=== PATIENT | female | born 1985 | race Caucasian/White ===

== ENCOUNTER 2018-03-23 08:00 | Inpatient (IN) ==
[2018-03-23] MEDS ORDERED: miSOPROStol 25 MCG TABLET PO PRN (08:18)
[2018-03-23] MEDS ORDERED: Metoclopramide 10 MG/2 ML VIAL IVP PRN (08:18)
[2018-03-23] MEDS ORDERED: Naloxone 0.4 MG/ML INJ IVP PRN (08:18)
[2018-03-23] MEDS ORDERED: *HR* Nalbuphine 10 MG/ML AMPUL IVP PRN (08:18)
[2018-03-23] MEDS ORDERED: Ondansetron 4 MG/2 ML VIAL IVP PRN (08:18)
[2018-03-23] MEDS ORDERED: Famotidine 20 MG/2 ML VIAL IVP PRN (08:18)
[2018-03-23] MEDS ORDERED: Oxytocin 20 units/ LR 1000 mL 20 UNIT/1,000 ML BAG IVC SCH (08:30)
[2018-03-23] MEDS ORDERED: Ringers Solution, Lactated 1,000 ML IVC SCH (08:30)
--- NOTE | 2018-03-23 08:58 | OB/GYN History & Physical ---
Date of Encounter: 03/23/18 Time of Encounter: 08:52 Assessment and Plan (1) 39 weeks gestation of Current visit: Yes Status: Acute Planned induction of labor with PO cytotec. EFM placed. FHTs category 1 and reactive. Explained to patient she needs to stay on the monitor, but does not have to stay in bed. Questions answered for patient and spouse. (2) Abnormal AFP screen Current visit: Yes Status: Acute Abnormal screen showing 1:34 Down's syndrome. Normal MFM consult. She has been followed with weekly NSTs here and growth scans (with MFM) History of Present Illness Chief complaint: Patient presents for induction of labor at term with abnormal AFP HPI: Ms. Judd is a 32 year old female G2 P 0-0-1-0 at 39 4/7 weeks presents to labor and delivery for induction of labor due to term with abnormal AFP. She had an MFM appointment and everything was found to be normal. She transferred care at 24 weeks. 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 She denies any contractions, vaginal bleeding, or leaking fluid. She reports good movement. Past Med Surg Social Fam HX - Past Medical History Source: patient Medical history: no medical history - Social History Smoking Status: Never smoker Obstetrical History - Pregnancies : 2 Ab's: 1 Medications and Allergies Docusate [Colace] 100 mg PO DAILY 03/23/18 [History] Omeprazole [PriLOSEC] 20 mg PO BIDAC 03/23/18 [History] Pnv Cmb#21/Iron/Folic Acid [ Complete Caplet] 1 each PO DAILY 03/23/18 [ History] 3 Allergy/AdvReac Type Severity Reaction Status Date / Time No Known Allergies Allergy Verified 03/23/18 08:29 Review of System OB All systems PM: reviewed and no additional remarkable complaints except as stated - Constitutional Constitutional ROS IM: as per HPI, no fever(s), no headache(s) - Gastrointestinal Gastrointestinal: no nausea, no vomiting - Menstruation Menstruation: amenorrhea Exam - Constitutional Constitutional: well developed, well nourished, no acute distress - HEENT HEENT: EOMI - Neck Neck exam: full ROM - Lungs Respiratory exam: CTAB - Cardiovascular Cardiovascular exam: RRR - Abdomen Abdomen: Present: bowel sounds normal, gravid, non tender - Extremities Extremities exam: pedal edema - Cervix Dilation: 1 (on exam 03/20/18 in the office) Effacement: 80 Station: -3 Results All other labs normal. - VTE Reasons for not Prescribing Prophylaxis: Treatment not Indicated - Low risk for VTE
[2018-03-23] MEDS ORDERED: Ringers Solution, Lactated 1,000 ML ONE (09:03)
[2018-03-23 09:08] LABS: Basophils % 0.4 %; Eosinophils # 0.1 K/mcL (0.0-0.6); Eosinophils % 0.8 %; Hematocrit 34.9 % (35.3-44.9); Hemoglobin 11.9 g/dL (11.5-15.4); Immature Granulocytes % 1.6 % (0-4); Lymphocytes # 1.9 K/mcL (0.6-4.6); Mean Corpuscular HGB Conc 34.1 g/dL (31.6-35.5); Mean Corpuscular Hemoglobin 29.7 pg (28.0-33.3); Mean Platelet Volume 10.3 fL (9.4-12.4); Monocytes # 0.6 K/mcL (0.0-1.3); Monocytes % 5.5 %; Neutrophils # 7.7 K/mcL (1.6-8.9); Platelet Count 241 K/mcL (140-400); Red Blood Count 4.01 M/mcL (3.82-4.97); Red Cell Distribution Width 14.1 % (11.5-14.5); Segmented Neutrophils % 73.7 %
[2018-03-23] MEDS ORDERED: Penicillin G Potassium 5,000,000 UNIT in 0.9 % Sodium Chloride Mini Bag 100 ML IVPB ONE (09:11)
[2018-03-23] MEDS ORDERED: EPHEDrine 50 MG/ML VIAL IVP PRN (09:19)
--- NOTE | 2018-03-23 09:22 | Anesthesia Evaluation PreOp ---
Date of Encounter: 03/23/18 Time of Encounter: 09:15 - Past History Planned Operation: vaginal del, induction Cardiac History: Denies any Significant Hx Pulmonary History: Denies Any Significant HX CASUAL SHOE INSPECTOR History: Denies Any Significant HX Other Medical History: Denies Any Significant HX Anesthesia History: No Prior Anesthetic Complications, Past Anesthesia (PONV for 30min to 1 hr.) Alcohol Use: none Drug use: none Medications and Allergies Docusate [Colace] 100 mg PO DAILY 03/23/18 [History] Omeprazole [PriLOSEC] 20 mg PO BIDAC 03/23/18 [History] Pnv Cmb#21/Iron/Folic Acid [ Complete Caplet] 1 each PO DAILY 03/23/18 [ History] 3 Allergy/AdvReac Type Severity Reaction Status Date / Time No Known Allergies Allergy Verified 03/23/18 08:29 Anesthesia Results - Labs 03/23/18 09:00 Anesthesia Exam - HEENT Pupil (Motor): Pupils equal Mallampati: II Teeth: Normal (por dentition) Oral Opening: Greater than 3 - CASUAL SHOE INSPECTOR LOC: Oriented CASUAL SHOE INSPECTOR Motor: Normal RUE, Normal LUE, Normal RLE, Normal LLE, Normal Face CASUAL SHOE INSPECTOR Sensory: Normal: RUE, LUE, RLE, LLE, Face - Cardiac Rhythm: Regular Murmur: None - Pulmonary Breath Sounds: bilateral Clear Respiratory Effort: Symmetrical Anesthesia Assess/Plan ASA Score: 2 Modified Raven Scale for Level of Consciousness: Cooperative, oriented, and tranquil Anesthetic Plan: General, Regional Monitoring Plan: Standard Monitors Recovery Plan: PACU
[2018-03-23] MEDS ORDERED: Epidural Premix (fent/bupiv) 110 ML EP SCH (09:30)
[2018-03-23 09:33] LABS: Amphetamine Screen,Urine Negative ng/mL (Cutoff=1000); Barbiturate Screen,Urine Negative ng/mL (Cutoff=200); Benzodiazepines Screen,Urine Negative ng/mL (Cutoff=200); Cannabinoid Screen,Urine Negative ng/mL (Cutoff = 50); Cocaine Screen,Urine Negative ng/mL (Cutoff= 300); Opiate Screen,Urine Negative ng/mL (Cutoff=300); Phencyclidine Screen,Urine Negative ng/mL (Cutoff=25)
--- NOTE | 2018-03-23 10:05 | OB Labor Progress Note ---
Date of Encounter: 03/23/18 Time of Encounter: 10:01 Labor Progress Note - Subjective Subjective: Patient resting in bed. Discussed POC with patient and figueroa induction. Patient denies any questions or concerns. - Cervix Cervix: 1.5/80/-2 - Heart Tones Heart Tones: 135 bpm moderate variability +15x15 accels no decels noted. Cat. 1 tracing - [place]: irregular - Interventions Interventions: SVE, Figueroa catheter placed without difficulty. Patient tolerated well. 30cc sterile water placed in figueroa balloon. - Plan Plan: Continue labor management Dr. Garcia updated on patient's status
[2018-03-23] MEDS ORDERED: Lidocaine -MPF 2% 5 ML VIAL ONE (11:58)
[2018-03-23] MEDS: Penicillin G Potassium 2,500,000 UNIT in 0.9 % Sodium Chloride 100 ML IVPB SCH ×2 (13:52→18:02)
--- NOTE | 2018-03-23 14:33 | OB Labor Progress Note ---
Date of Encounter: 03/23/18 Time of Encounter: 14:30 Labor Progress Note - Subjective Subjective: Patient doing well. Patient reports pain is tolerable at this time. - Cervix Cervix: 3.5/90/-2 - Heart Tones Heart Tones: 135 bpm moderate variability +15x15 accels no decels noted. Cat. 1 tracing - [place]: 2-3 min apart - Interventions Interventions: SVE, discussed POC with patient. Patient denies any questions or concerns. - Plan Plan: Continue labor management Dr. Garcia updated on patient's status
--- NOTE | 2018-03-23 18:53 | Anesthesia Procedures ---
Date of Encounter: 03/23/18 Time of Encounter: 18:31 Procedures: Anesthesia - Epidural/Spinal Patient ID/Chart reviewed: Yes Patient examined: Yes OB Eval: Gestational age: term OB Eval: : 1 OB Eval: Contractions: Non-stressed pattern Consent Obtained: Yes Supplemental Oxygen: None/Room Air Site Prep: Aseptic Technique, Sterile prep and drape, 0.5% Chlorhexidine/Alcohol Patient position: upright Local Anesthetic: Lidocaine 1% Amount of Local Anesthetic used: 2 Touhy Needle Gauge: 18 Touhy Needle Depth (cm): 6 Catheter Depth at Skin (cm): 11 Test Dose (1.5% Lido + Epi): Volume given (mls): 3 Test Dose Result: Negative Loading Dose: Other: 10ml from solution Loading Dose Administered: Thru Touhy Needle Infusion Med: 0.125% Bupivacaine w/ 2 mcg/ml Fentanyl Infusion Rate (mls/hr): [address]: Tegaderm, Tape Interspace Used: L4-L5 Loss of Resistance (WENDY): Yes (saline) Blood: No CSF: No Paresthesia: No Procedure: vss though out procedure, FHR stable per rn's
--- NOTE | 2018-03-23 20:14 | OB Labor Progress Note ---
Date of Encounter: 03/23/18 Time of Encounter: 19:45 Labor Progress Note - Subjective Subjective: Patient comfortable after her epidural. She denies any complaints at this time. - Cervix Cervix: 4/80/-3 cephalic - Heart Tones Heart Tones: category 1, basline 130 - [place]: q 2 minutes, pitocin at 6 mUnits/min - Interventions Interventions: AROM, large amount of clear fluid, IUPC placed without difficulty - Plan Plan: Continue pitocin induction with anticipation of a vaginal delivery
[2018-03-24] MEDS ORDERED: *HR* Ropivacaine/PF 0.2% 20 ML VIAL ONE (08:56)
[2018-03-24] MEDS ORDERED: *HR* FentaNYL (PF) 100 MCG/2 ML VIAL ONE (08:56)
--- NOTE | 2018-03-24 09:03 | Anesthesia Progress Note ---
Date of Encounter: 03/24/18 Time of Encounter: 09:02 Anesthesia Note - Note Note: 03/24/18 09:02 re bolus for break through pain, fentanyl 100 mcg, ropivicaine 0.2% 5 cc
[2018-03-24] MEDS: Penicillin G Potassium 2,500,000 UNIT in 0.9 % Sodium Chloride 100 ML IVPB SCH (11:06)
--- NOTE | 2018-03-24 20:29 | OB/GYN Procedure Note ---
Delivery - Delivery Date: 03/24/18 Provider: Johnny Ledesma Delivery induction: misoprostol Delivery monitor: internal FHT, internal uterine Anesthesia: epidural Quantitated Blood Loss: 300 - (s) Infant A Delivery Date: 03/24/18 Delivery Time: 19:48 Presentation: vertex Position: JERICA Route of delivery: vacuum extraction Viability: Viable Pounds: 7 Ounces: 6 at 1 minute: 8 at 5 mins: 9 Specimens collected: cord blood Placenta: spontaneous Cord: 3 umbilical vessels, nuchal reduced - Repair Episiotomy: none Laceration Description: Perineal - 2nd Degree, Vaginal (rt labial) - Complications Delivery complications: none - Disposition Mom disposition: stable in LDR disposition: stable in LDR - Comments Comments: Pt reached complete dilatation and +3 station and was absolutely exhausted asking for options to expedite delivery. We discussed possible vacuum with associated risks and benefits and vs continued expectant mgmt. Pt gave verbal consent to vacuum.Vacuum was applied at + 3 station and infant was delivered in 2 pulls with good maternal effort. total vacuum time was 40 sec. and vacuum pressure was 550 mmhg and was reduced b/w contractions. was delivered without dystocia. We had spontaneous delivery of normal placenta with 3 VC. There was right vaginal laceration and 2nd degree laceration repaired under epidural with 3-0 vicryl.
[2018-03-24] MEDS ORDERED: Measles/Mumps/Rubella Vacc 0.5 ML VIAL SQ PRN (20:51)
[2018-03-24] MEDS ORDERED: Rho Immune Globulin 1,500 UNIT SYRINGE IM PRN (20:51)
[2018-03-24] MEDS: Acetaminophen 325 MG TABLET PO PRN (21:07)
[2018-03-24] MEDS ORDERED: Ondansetron 4 MG/2 ML VIAL IVP ONE (23:53)
[2018-03-25] MEDS: Ibuprofen 600 MG TABLET PO PRN ×4 (00:02→21:53)
[2018-03-25] MEDS ORDERED: Benzocaine/Menthol 56 GM AEROSOL SPRAY TP PRN (00:52)
[2018-03-25 06:44] LABS: Basophils % 0.2 %; Eosinophils # 0.1 K/mcL (0.0-0.6); Eosinophils % 0.4 %; Hematocrit 26.5 % (35.3-44.9); Hemoglobin 9.3 g/dL (11.5-15.4); Immature Granulocytes % 1.3 % (0-4); Lymphocytes # 1.7 K/mcL (0.6-4.6); Mean Corpuscular HGB Conc 35.1 g/dL (31.6-35.5); Mean Corpuscular Hemoglobin 30.4 pg (28.0-33.3); Mean Corpuscular Volume 86.6 fL (83.0-100.0); Mean Platelet Volume 10.1 fL (9.4-12.4); Monocytes # 1.1 K/mcL (0.0-1.3); Monocytes % 5.5 %; Neutrophils # 16.1 K/mcL (1.6-8.9); Platelet Count 173 K/mcL (140-400); Red Blood Count 3.06 M/mcL (3.82-4.97); Red Cell Distribution Width 14.2 % (11.5-14.5); Segmented Neutrophils % 83.6 %
[2018-03-25] MEDS: Prenatal Vit/FA 1 EACH TABLET PO SCH (08:09)
--- NOTE | 2018-03-25 11:51 | OB/GYN Progress Note ---
Date of Encounter: 03/25/18 Time of Encounter: 11:48 - Assessment and Plan (1) 39 weeks gestation of Current Visit: Yes Status: Resolved (2) Abnormal AFP screen Current Visit: Yes Status: Resolved Abnormal screen showing 1:34 Down's syndrome. (3) Vaginal delivery Current Visit: Yes Status: Acute Patient is progressing well from a PP standpoint. Reassurance provided regarding the diarrhea which is likely due to the cytotec from yesterday. She is cleaned up and feeling better. She would like to stay until tomorrow to receive more help with and care (4) Breast feeding status of mother Current Visit: Yes Status: Acute Mom is attempting to latch, but baby is too sleepy. She is pumping and baby is getting expressed breast milk. She will continue to work with support. Subjective - Subjective Principal diagnosis: s/p vaginal delivery Patient reports: appetite normal, voiding normally, pain well controlled, ambulating normally, other (diarrhea this morning that was a large amount and unable to control), no nauseated [place]: doing well Objective - Latest Vital Signs Latest vital signs: Vital Signs Temp Pulse Resp BP Pulse Ox 03/25/18 07:30 98.0 F 83 16 98/65 03/25/18 00:45 98.1 F 93 16 103/72 98 03/24/18 23:45 16 03/24/18 22:45 98.2 F 96 16 106/67 99 Intake and Output 03/24/18 03/25/18 03/25/18 23:59 07:59 15:59 Intake Total 300 / 300 3 / 3 Output Total 1600 / 1600 Balance -1300 / -1300 3 / 3 Intake: Oral 300 / 300 3 / 3 Output: Urine 1600 / 1600 Other: # Breastfeedings 15 Weight 90 kg - Exam Lungs: bilateral: normal Chest: Normal S1, Normal S2 Extremities: Present: normal Abdomen: Present: normal appearance, soft Uterus: Present: normal, firm Uterus Position: At Umbilicus - Labs Labs: Laboratory Results - last 24 hr 03/25/18 06:24 WBC 19.3 H D RBC 3.06 L Hgb 9.3 L D Hct 26.5 L MCV 86.6 MCH 30.4 MCHC 35.1 RDW 14.2 Plt Count 173 MPV 10.1 Immature Gran % 1.3 Seg Neutrophils % 83.6 Lymphocytes % 9.0 Monocytes % 5.5 Eosinophils % 0.4 Basophils % 0.2 Neutrophils # 16.1 H Lymphocytes # 1.7 Monocytes # 1.1 Eosinophils # 0.1 Basophils # 0.0
[2018-03-25] MEDS: Acetaminophen 325 MG TABLET PO PRN (13:15)
[2018-03-25] MEDS: Oxytocin 20 units/ LR 1000 mL 20 UNIT/1,000 ML BAG IVC SCH (19:33)
[2018-03-26] MEDS: Ibuprofen 600 MG TABLET PO PRN ×2 (05:04→12:37)
[2018-03-26] MEDS: Prenatal Vit/FA 1 EACH TABLET PO SCH (07:35)
[2018-03-26 07:52] VITALS: BP 119/90
--- NOTE | 2018-03-26 10:00 | Discharge Summary ---
Date of Encounter: 03/26/18 Time of Encounter: 09:56 - Discharge Diagnosis (1) anemia Priority: Secondary Status: Acute Comments: Will discharge home on BID iron. (2) Breast feeding status of mother Priority: Secondary Status: Acute (3) Vaginal delivery Priority: Primary Status: Acute Comments: Pt states feeling better. Pain well managed on po pain medication. tolerates regular diet, no BM, +flatus, . Complains of LE swelling. Desires discharge. - Discharge Medications Prescriptions: Ibuprofen [Motrin] 600 mg PO Q6HR PRN #60 tablet PRN Reason: Pain Docusate [Colace] 100 mg PO BID #30 capsule Ferrous Sulfate 325 mg PO BIDWM #60 tablet Home Medications: Docusate [Colace] 100 mg PO DAILY 03/23/18 [History] Omeprazole [PriLOSEC] 20 mg PO BIDAC 03/23/18 [History] Pnv Cmb#21/Iron/Folic Acid [ Complete Caplet] 1 each PO DAILY 03/23/18 [ History] Acetaminophen [Tylenol] 650 mg PO Q6HR PRN tablet 03/26/18 [Rx] Benzocaine/Menthol [place] [Dermoplast [place]] 1 appl TP QID PRN aerosol 03/26/18 [Rx] Docusate [Colace] 100 mg PO BID #30 capsule 03/26/18 [Rx] Ferrous Sulfate 325 mg PO BIDWM #60 tablet 03/26/18 [Rx] Ibuprofen [Motrin] 600 mg PO Q6HR PRN #60 tablet 03/26/18 [Rx] Vit/FA 1 each PO DAILY tablet 03/26/18 [Rx] Allergies/Adverse Reactions: 3 Allergy/AdvReac Type Severity Reaction Status Date / Time No Known Allergies Allergy Verified 03/23/18 08:29 Data Procedures and tests throughout hospitalization: Laboratory Tests 03/23/18 03/23/18 03/25/18 09:00 09:00 06:24 WBC 10.4 19.3 H D RBC 4.01 3.06 L Hgb 11.9 9.3 L D Hct 34.9 L 26.5 L MCV 87.0 86.6 MCH 29.7 30.4 MCHC 34.1 35.1 RDW 14.1 14.2 Plt Count 241 173 MPV 10.3 10.1 Immature Gran % 1.6 1.3 Seg Neutrophils % 73.7 83.6 Lymphocytes % 18.0 9.0 Monocytes % 5.5 5.5 Eosinophils % 0.8 0.4 Basophils % 0.4 0.2 Neutrophils # 7.7 16.1 H Lymphocytes # 1.9 1.7 Monocytes # 0.6 1.1 Eosinophils # 0.1 0.1 Basophils # 0.0 0.0 Urine Opiates Screen Negative Ur Barbiturates Screen Negative Ur Phencyclidine Scrn Negative Ur Amphetamines Screen Negative U Benzodiazepines Scrn Negative Urine Cocaine Screen Negative U Marijuana (THC) Screen Negative Ur Drug Screen Interp See Below Date of admission: 03/23/18 08:12 Primary care physician: Noah Olivares Consults: 03/24/18 20:51 Consult to Floral Arranger [CONS] Routine Comment: Vaginal delivery, consult needed Discharging clinician: Carmella Osborne Anticipated date of discharge: 03/26/18 - Patient Status Disposition: Home, Self-Care Condition: Good Functional capacity at discharge: independent ambulation Overall status at discharge: patient is progressing back to baseline - Discharge Instructions Follow Up With: Noah Olivares DO [Primary Care Provider] - Rebeka Garcia DO [Partnered Physician] - - Diet and Activity Activity: resume usual activities as tolerated Diet: regular diet Hospital Course Reason for admission: induction of labor, IUP at term Delivery: vacuum extraction Episiotomy: none Laceration: 2nd degree, other Other procedures: none complications: none Discharge diagnosis: IUP at term delivered [place] baby: male Hospital course: Delivery - Delivery Date: 03/24/18 Provider: Johnny Ledesma Delivery induction: misoprostol Delivery monitor: internal FHT, internal uterine Anesthesia: epidural Quantitated Blood Loss: 300 - Infant (s) A Delivery Date: 03/24/18 Delivery Time: 19:48 Presentation: vertex Position: JERICA Route of delivery: vacuum extraction Viability: Viable Pounds: 7 Ounces: 6 at 1 minute: 8 at 5 mins: 9 Specimens collected: cord blood Placenta: spontaneous Cord: 3 umbilical vessels, nuchal reduced - Repair Episiotomy: none Laceration Description: Perineal - 2nd Degree, Vaginal (rt labial) - Complications Delivery complications: none - Disposition Mom disposition: stable in PP and appropriate for discharge. - Comments Comments: Pt reached complete dilatation and +3 station and was absolutely exhausted asking for options to expedite delivery. We discussed possible vacuum with associated risks and benefits and vs continued expectant mgmt. Pt gave verbal consent to vacuum.Vacuum was applied at + 3 station and infant was delivered in 2 pulls with good maternal effort. total vacuum time was 40 sec. and vacuum pressure was 550 mmhg and was reduced b/w contractions. Infant was delivered without dystocia. We had spontaneous delivery of normal placenta with 3 VC. There was right vaginal laceration and 2nd degree laceration repaired under epidural with 3-0 vicryl. Time Attestation: Total time spent providing and/or coordinating discharge services: Time Spent: Less than 30 minutes Exam - Constitutional Vitals: Temp Pulse Resp BP Pulse Ox 97.6 F 103 16 119/90 100 03/26/18 07:51 03/26/18 07:51 03/26/18 07:51 03/26/18 07:51 03/25/18 21:55 General appearance IM: A&O X 3 - Respiratory Respiratory exam: Present: CTAB - Cardiovascular Cardiovascular exam IM: Present: RRR - GI/Abdominal GI/Abdominal exam IM: soft - Uterine Tone: Firm Uterus Position: At Umbilicus - Extremities Exam Extremities exam IM: Present: normal capillary refill, pedal edema - Neurological Exam Neurological exam: normal gait, oriented X3 - Psychiatric Additional comments: Pt tearful and times and anxious of her care and care. PP depression discussed and warning signs given.
== END 2018-03-26 16:25 | disposition home or self-care (01) | DRG 775 ==
LOC: 1NENULAB 08:12 → 1NENUOBS 03-24 21:40
PROVIDERS: ADMIT Obstetrics & Gynecology; ATTEND Obstetrics & Gynecology